=== PATIENT | female | born 1980 | race Caucasian/White ===

== ENCOUNTER 2018-12-11 13:56 | Outpatient (CLI) | payer MEDICAID ==
[~2018-12-11] VITALS: Ht 162.6 cm; Wt 67.4 kg
[~2018-12-11 13:56] MED LIST: PNV11TAB PO
[2018-12-11 14:55] VITALS: Ht 162.6 cm; Wt 67.4 kg
[2018-12-11 14:56] VITALS: BP 101/59; PULSE 73; RESP 19
== END 2018-12-11 17:01 | disposition home or self-care (01) ==
LOC: L-D 13:56 → OBT 13:56
PROVIDERS: ATTEND Obstetrics & Gynecology
DX: O36.8130 Decreased fetal movements, third trimester, not applicable or unspecified (principal); O09.523 Supervision of elderly multigravida, third trimester; Z3A.37 37 weeks gestation of pregnancy
CPT/HCPCS: 76818; 81001; Z7500; G0463

== ENCOUNTER 2018-12-25 16:08 | Inpatient (IN) | payer MEDICAID ==
[~2018-12-25] VITALS: Ht 162.6 cm; Wt 53.6 kg
[2018-12-25] MEDS ORDERED: CARBOPROST 250 MCG INJ IM PRN (18:00)
[2018-12-25] MEDS ORDERED: OXYTOCIN 30 UNITS/LR 500 ML IV PRN (18:00)
[2018-12-25] MEDS ORDERED: LIDOCAINE 1% (MPF) 30 ML INJ INJ PRN (18:00)
[2018-12-25] MEDS ORDERED: OXYTOCIN 30 UNITS/LR 500 ML IV SCH ×2 (18:00)
[2018-12-25] MEDS ORDERED: METHYLERGONOVINE 0.2 MG INJ IM PRN (18:00)
[2018-12-25] MEDS ORDERED: MISOPROSTOL 200 MCG TAB PR PRN (18:00)
[2018-12-25 19:02] VITALS: BP 111/70; PULSE 74; RESP 18
[2018-12-25] MEDS: LACTATED RINGER'S 1,000 ML IV SCH (19:04)
[2018-12-25] MEDS: MISOPROSTOL 50 MCG CAPSULE PO SCH ×2 (19:40→23:58)
[2018-12-25] MEDS ORDERED: MINERAL OIL LIGHT 10 ML VIAL TOP ONE (21:00)
[2018-12-26] MEDS: LACTATED RINGER'S 1,000 ML IV SCH ×2 (01:06→07:58)
[2018-12-26] MEDS: MISOPROSTOL 50 MCG CAPSULE PO SCH ×3 (04:10→16:26)
[2018-12-26] MEDS ORDERED: LACTATED RINGER'S 1,000 ML IV PRN (08:02)
[2018-12-26] MEDS ORDERED: FENTAnyl 2MCG/ML-ROPIV 0.2% 100 ML ONE (08:21)
[2018-12-26] MEDS ORDERED: NALOXONE (0.4 MG/ML) INJ IV PRN (08:30)
[2018-12-26] MEDS ORDERED: DIPHENHYDRAMINE 50 MG INJ IV PRN (08:30)
[2018-12-26] MEDS ORDERED: FENTAnyl 2MCG/ML-ROPIV 0.2% 100 ML BAG EPI SCH (08:30)
[2018-12-26] MEDS ORDERED: ONDANSETRON 4 MG INJ IV PRN (08:30)
[2018-12-26] MEDS ORDERED: LEVOTHYROXINE 100 MCG TAB PO SCH (09:00)
[2018-12-26 16:00] VITALS: BP 125/66; PULSE 54; RESP 18
[2018-12-26] MEDS: LACTATED RINGER'S 1,000 ML IV* SCH ×2 (16:22→17:11)
[2018-12-26] MEDS ORDERED: OXYTOCIN 30 UNITS/LR 500 ML IV PRN (16:30)
[2018-12-26] MEDS ORDERED: CARBOPROST 250 MCG INJ IM PRN (16:30)
[2018-12-26] MEDS ORDERED: DIBUCAINE 1% 30 GM OINT TOP PRN (16:30)
[2018-12-26] MEDS ORDERED: BENZOCAINE 20% 56 ML SPRAY TOP PRN (16:30)
[2018-12-26] MEDS ORDERED: WITCH HAZEL/GLYCERIN PAD PR PRN (16:30)
[2018-12-26] MEDS ORDERED: HYDROCODONE/APAP (5/325) TAB PO PRN (16:30)
[2018-12-26] MEDS ORDERED: METHYLERGONOVINE 0.2 MG INJ IM PRN (16:30)
[2018-12-26] MEDS ORDERED: MISOPROSTOL 200 MCG TAB PR PRN (16:30)
[2018-12-26] MEDS: ACETAMINOPHEN 325 MG TAB PO PRN (17:15)
[2018-12-26] MEDS: IBUPROFEN 600 MG TAB PO SCH (18:00)
[2018-12-26 20:00] VITALS: BP 99/55; PULSE 65; RESP 16
[2018-12-26] MEDS: SENNA/DOCUSATE NA (8.6MG/50MG) TAB PO SCH (21:00)
[2018-12-27] VITALS: BP 94/50; PULSE 65; RESP 18
[2018-12-27 04:00] VITALS: BP 90/55; PULSE 67; RESP 18
[2018-12-27] MEDS: ACETAMINOPHEN 325 MG TAB PO PRN ×2 (04:50→19:51)
[2018-12-27] MEDS: IBUPROFEN 600 MG TAB PO SCH ×4 (06:00→18:00)
[2018-12-27] MEDS: LEVOTHYROXINE 100 MCG TAB PO SCH (06:39)
[2018-12-27 08:00] VITALS: BP 93/50; PULSE 78; RESP 16
[2018-12-27] MEDS: SENNA/DOCUSATE NA (8.6MG/50MG) TAB PO SCH ×2 (09:53→21:00)
[2018-12-27 11:59] VITALS: BP 96/51; PULSE 76; RESP 18
[2018-12-27 16:02] VITALS: BP 97/55; PULSE 78; RESP 16
[2018-12-27 20:00] VITALS: BP 104/51; PULSE 80; RESP 18
[2018-12-28] MEDS: ACETAMINOPHEN 325 MG TAB PO PRN ×2 (03:53→11:13)
[2018-12-28 04:00] VITALS: BP 98/53; RESP 19
[2018-12-28] MEDS: IBUPROFEN 600 MG TAB PO SCH ×3 (06:00→12:00)
[2018-12-28] MEDS: LEVOTHYROXINE 100 MCG TAB PO SCH (06:23)
[2018-12-28 08:00] VITALS: BP 97/57; PULSE 59; RESP 19
[2018-12-28] MEDS ORDERED: DIPHTH/TET/ACEL PERTUSS (ADULT) 0.5 ML VIAL IM* ONE (09:00)
[2018-12-28] MEDS: SENNA/DOCUSATE NA (8.6MG/50MG) TAB PO SCH (09:26)
== END 2018-12-28 16:51 | disposition home or self-care (01) | DRG 807 ==
LOC: L-D 16:08 → OBT 16:08 → L-D 17:41 → OBT 17:41 → PP1 12-26 15:51
PROVIDERS: ADMIT Obstetrics & Gynecology; ATTEND Obstetrics & Gynecology
PROC: 0HQ9XZZ Repair Perineum Skin, External Approach (ICD-10-PCS; principal; 2018-12-26)
PROC: 10E0XZZ Delivery of Products of Conception, External Approach (ICD-10-PCS; 2018-12-26)
DX: O70.0 First degree perineal laceration during delivery (principal); Z37.0 Single live birth; Z3A.40 40 weeks gestation of pregnancy
CPT/HCPCS: 62322; 76815; 76818; 85025; 85610; 85730; 86592; 86850; 86900; 86901; 93970; 99464; G0463; J2210; J2590; J3010; J7120